=== PATIENT | female | born 1955 | race Caucasian/White ===

== ENCOUNTER 2019-03-22 09:13 | Emergency (ER) | payer OTHER, SELFPAY ==
[2019-03-22 09:14] VITALS: BP 149/85; PULSE 100; RESP 16; TEMP 36.7; O2SAT 97; BMI 20.2
--- NOTE | 2019-03-22 09:24 | ED.DCSUM_ITS ---
History of Present Illness Chief Complaint: Bite Onset: Yesterday Narrative: She presents to the ED with dog bite to the dorsal aspect of her right forearm. She said that last night, she was trying to break up her dogs that were fighting when 1 bit her right forearm. She also notes a scratch to the dorsum of her left hand. She states that her right forearm bite became very red swollen and painful. She reports some purulent drainage from the area. She denies any fever, chills, nausea, or vomiting. Tetanus was updated several months ago. She states that both of the dogs are hers and they are up-to-date on their vaccinations. Past Medical History - Allergies and Home Meds Allergies/Adverse Reactions: Allergies No Known Allergies Allergy (Verified 03/22/19 09:13) Primary Care Physician: Kathia Strong PA [Primary Care Provider] - Smoking Status: Current every day smoker Physical Exam Vital Signs/Narrative: Vital Signs Temp Pulse Resp BP Pulse Ox 03/22/19 09:14 98.0 F 100 16 149/85 H 97 General: Well nourished, Well developed, No Acute Distress Head: Normocephalic, Atraumatic Eyes: Perrl, EOMI ENT: Moist mucous membranes, No rhinorrhea Neck: Supple, Nontender Cardiovascular: Regular rate, Regular rhythm, No murmurs Respiratory: No distress, CTA bilaterally, Chest nontender Abdomen: Soft, Nontender, Nondistended, Normal bowel sounds Back: Nontender, Normal Inspection Extremities: - - Full ROM of all extremities. Skin: No rash, - - Linear superficial laceration to the dorsum of the left hand. No surrounding erythema, edema, or drainage. Open wound of the proximal dorsal right forearm with significant surrounding erythema, warmth, and edema. There is associated purulent drainage. No lymphangitic streaking. Neurological: Alert, Oriented x3, Cranial nerves II-XII grossly intact, Normal Strength, Normal Sensation Psychological: Normal affect, Normal Mood Diagnostic/Tx/Re-eval - Medical Decision Making Presents to the ED with forearm abscess secondary to dog bite that occurred last night. Given the severity of the abscess and time span of development, comprehensive work-up was pursued. Vital signs are stable. Wound culture was obtained. CBC, BMP, and ESR are fairly unremarkable. CRP is mildly elevated. X-ray of the right forearm shows no acute abnormalities. Patient's pain was controlled with morphine. Her tetanus was up-to-date prior to this visit. Patient was given a dose of Unasyn in the ED. 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 We contacted on-call orthopedic physician, who was not comfortable with keeping the patient at this facility. We contacted [facility] in [facility] who were unwilling to take this patient. We contacted [facility] who accepted the patient. Patient will be transferred by private vehicle. She was agreeable to this plan. Impression: Right forearm abscess. Dog bite. Left hand abrasion. Disposition: Transferred to [facility] ED Disposition - Plan for ED Patient: Referrals: Kathia Strong PA [Primary Care Provider] -
--- NOTE | 2019-03-22 09:29 | RAD_ITS ---
STUDY: X-RAY - RIGHT RADIUS AND ULNA REASON FOR EXAM: Female, 63 years old. Dogbite, infection TECHNIQUE: 2 view(s) of the forearm. COMPARISON: None. FINDINGS: There is no demonstrated soft tissue swelling. Normal visualized radius. Normal visualized ulna. RAD/Forearm 2 Views IMPRESSION: Normal x-ray examination of the radius and ulna. Electronically Signed: Rob Gorman MD at 11:03 EDT Tel , Service support ,
[2019-03-22 10:04] LABS: Erythrocyte Sedimentation Rate 20 mm/hr (0-30)
[2019-03-22 10:05] LABS: Absolute Lymphocyte Count 1.31 X10^3/uL (0.83-4.51); Absolute Neutrophil Count 6.9 X10^3/uL (2.0-7.7); Basophil# 0.08 X10^3/uL; Basophil% 0.8 % (0-1); Eosinophil# 0.17 X10^3/uL; Eosinophils% 1.7 % (0-5); Hematocrit 45.6 % (37-47); Hemoglobin 15.7 g/dL (12.0-15.0); Lymphocyte # 1.31 X10^3/ul (4.0); Lymphocyte % 12.9 % (19-41); Mean Corp Hgb Conc 34.4 g/dL (32-36); Mean Corpuscular Hgb 32.4 pg (27.0-32.0); Mean Platelet Vol. 9.3 fl (6.2-12.0); Monocyte# 1.63 X10^3/uL; Monocyte% 16.1 % (0-10); NRBC Flagged by Analyzer 0 % (0-5); Neutrophil % 68.1 % (47-70); POSITIVE DIFFERENTIAL YES; Platelet Count 312 K/mm3 (150-450); RBC Distribution Width CV 12.7 % (11.6-14.6); RBC Distribution Width SD 43.7 fl (35.1-43.9); Red Blood Count 4.85 M/mm3 (4.2-5.4); White Blood Count 10.1 K/mm3 (4.4-11.0)
[2019-03-22 10:09] LABS: Differential Indicated SCAN CRITERIA MET
[2019-03-22 10:15] LABS: Anion Gap 8 (5-15); BUN 5 mg/dL (7-18); BUN/Creat Ratio 6.1 RATIO (10-20); Calcium,Total 9.1 mg/dL (8.5-10.1); Chloride 98 mmol/L (98-107); Creatinine, Serum 0.82 mg/dL (0.55-1.02); EST Glomerular Filtration Rate 75 mL/min (>60); Est Glom Filt Rate - Afr Amer 90 mL/min (>60); Estimated Creatinine Clearance 65.39 ml/min; Glucose 86 mg/dL (74-106); Potassium 3.9 mmol/L (3.5-5.1); Sodium Level 136 mmol/L (136-145)
[2019-03-22] MEDS: 0.9% Normal Saline 1,000 ML 999 ML IV (10:17)
[2019-03-22] MEDS: Morphine 4 MG/ML Syringe IV ×2 (10:17→12:14)
[2019-03-22 11:08] VITALS: TEMP 36.7
--- NOTE | 2019-03-22 11:24 | NURSING ---
CALLED [facility], TALKED TO ETHAN. NOT ACCEPTING ANY OUT PATIENT TRANSFERS. THEY ARE FULL
[2019-03-22 12:25] LABS: M R Staph aureus DNA By PCR Negative (Negative); Probe Check PASS; Specimen Processing Control PASS; Staph aureus DNA By PCR NEGATIVE (Negative)
[2019-03-22 12:29] VITALS: BP 132/90; PULSE 106; RESP 18; TEMP 36.9; O2SAT 97
[2019-03-22 12:43] LABS: Lactic Acid 1.3 mmol/L (0.4-2.0)
== END 2019-03-22 13:04 | disposition short-term general hospital (02) ==
PROVIDERS: Emergency Medicine; Emergency Provider Physician Assistant; Family Provider Physician Assistant; PCP Physician Assistant
DX: L02.413 Cutaneous abscess of right upper limb (principal); S51.851A Open bite of right forearm, initial encounter; S60.512A Abrasion of left hand, initial encounter; W54.0XXA Bitten by dog, initial encounter; Y93.9 Activity, unspecified; Y92.9 Unspecified place or not applicable; Y99.9 Unspecified external cause status; F17.200 Nicotine dependence, unspecified, uncomplicated
CPT/HCPCS: 73090; 80048; 83605; 85025; 85652; 86140; 87070; 87205; 87640; 96361; 96365; 96375; 96376; 99284; J7030; A4216; J0295

== ENCOUNTER 2019-04-26 07:57 | Outpatient (RCR) | payer MEDICARE, SELFPAY ==
--- NOTE | 2019-04-26 15:47 | HP.OTFCE.D ---
FCE D/C Summary - Discharge HANANE BEASLEY was seen for a one time visit for an FCE on 04/26/19 and is discharged.
--- NOTE | 2019-04-26 15:47 | HP.FCE ---
HP OT Functional Capacity Eval - Task Lift Floor (Occasional 1-33% of Day): 7 lbs Floor (Frequent 34-66% of Day): negligible Floor (Constant 67-100% of Day): negligible Floor PDL: Sedentary Knee (Occasional 1-33% of Day): 10 lbs Knee (Frequent 34-66% of Day): 5 lbs Knee (Constant 67-100% of Day): negligible Knee PDL: Sedentary Waist (Occasional 1-33% of Day): 15 lbs Waist (Frequent 34-66% of Day): 7 lbs Waist (Constant 67-100% of Day): negligible Waist PDL: Sedentary-Light Shoulder (Occasional 1-33% of Day): 12 lbs Shoulder (Frequent 34-66% of Day): 7 lbs Shoulder (Constant 67-100% of Day): negligible Shoulder PDL: Sedentary Overhead (Occasional 1-33% of Day): 7 lbs Overhead (Frequent 34-66% of Day): 5 lbs Overhead (Constant 67-100% of Day): negligible Overhead PDL: Sedentary Comments: Push/Pull- - Work Activity/Posture Bending: Frequent Ability (34-66% of day) Squatting: Occasional Ability (1-33% of day) Kneeling: Occasional Ability (1-33% of day) Reaching out: Frequent Ability (34-66% of day) Reaching up: Occasional Ability (1-33% of day) Sitting: Frequent Ability (34-66% of day) Standing: Occasional Ability (1-33% of day) - Reference Duration Sedentary Sedentary Light Light Light Medium Medium Medium Heavy Very Heavy Heavy Occasional (0-33% of day) Frequent (34-66% of day) Constant (67-100% of day) 10 # Negligible Negligible 15 # 8 # Negligible 20 # 10# Negli. 35 # 18 # 7 # 50 # 25 # 10 # 75 # 100 # >100 # 38 # 50 # >50 # 15 # 20 # >20 # - Patient Information Height: 1.73 m Weight:: 62.142 kg Hand Dominance: R BP (Medication Use/Usual Values per pt report): No - Medical History Medical History Including Restrictions: No restirctions by doctor or provided to therapist at this time. - Diagnoses Diagnoses: Past medical history: mastectomy (2017), tobacco use daily ( 1x pack), dog bite on right forearm 9-27-19, Asthma, chronic bronchitis, ulnar neuropathy, radiation dermatitis. Current: Lynnette was referred to functional capacity assessment due to complications on breast cancer starting in 2017. She noted she has mastectomy in 2017 which was followed by complications of infections that were not cleared until August 2017. - Symptoms Symptoms: Lynnette noted he main symptoms are fatigue and generalized weakness with all tasks. - Pain Pain: Lynnette noted hypersensitivity on area of mastectomy and radiation sites. She noted that she can wear bra about three hours prior to needing to remove due to irritation. Noted no pain but general fatigue as day progresses. She did not complete therapy services for scar management post mastectomy as well as generalized weakness. She has since been on disability. Luz Elena Pain Questionnaire is a self-report pain assessment to determine a patient?s accurate psychodynamics for accurate pain rating. A score of 30 or high indicates poor psychodynamics and the greater probability of decreased accuracy with accurate pain reporting. Pre- Luz Elena: 24. Post Luz Elena: 21. Fear Avoidance Questionnaire (FAQ) is a client self-report assessment for 18-64+ that has shown to be reliable and valid for determining increased fear with movements. A score of 96 or higher indicates increased fear avoidance behaviors. FAQ Pre-testin. -Fear avoidance belief about work (items 6,7,9,10,11,12,15): 30. -Fear avoidance belief about physical activity (items 2,3,4,5):21. FAQ Post testin. -Fear avoidance belief about work (items 6,7,9,10,11,12,15): 14. -Fear avoidance belief about physical activity (items 2,3,4,5):21. Disabilities of Arm, Shoulder and Hand is a questionnaire to determine percieved about of disabilities on the affect upper extremity. Total: 120. 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 She noted that after family medical leave was completed, she ?was terminated from position?. 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 She noted she would drive roughly 1000 miles per week and visited 2-3x clients per day, working five days per week. She completed home visits for clients, did not complete client transfers, but did lift durable medical equipment and other items to take into home. Did not need to lift more than 20-50 lbs on occasional basis. - ADLS ADLS: Lynnette lives in one story home with three steps to enter. She has handrail to left side. She has first floor set up once in home. She is independent in self-care tasks and is able to complete caring for two dogs and one cat. She noted some difficulty lift food bags into home which she received help to complete but is able to complete other related tasks. She hires out for [employer]. Lynnette completes microwave meals and can cook simple meals as needed. She noted some fatigue when completed cooking tasks and often completed microwave meals. - Physical Examination Physical Examination: The purpose of this functional capacity evaluation (FCE) was to determine Lynnette?s physical ability. 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 Aerobic limiting factor: 85% of max adjust HR= (220-age) *.85= 132 BPM. Calculated max weight: 60% of weight= 88 Lbs. Beginning Diagnostics: -Blood pressure: 136/97 mmHg. -Heart rate: 118. -Oxygen saturation at room air: 88% ROM: Range of Motion: Shoulder motion measured as left masectomy completed in 2017: - flexion: R 0-98 , L 0- 112. - abudction: R 0-119, L 0- 123. - Internal rotation: R 0-80 , L 0-74. - External rotation: R 0-52 ,L 0-46 Strength: Strength measurements completed with use of manual muscle testing and short arm access of dynamometer. Results are as follows: Upper Body: Shoulder flexion: -Dynamometer: R 5.4 , L 5.4 lbs. Shoulder extension: -Dynamometer: R 10.7 , L 8.9 lbs. Shoulder abduction: -Dynamometer: R 4.4 , L 4.5 lbs. Shoulder Internal Rotation: -Dynamometer: R 6.9 , L 7.3 lbs. Shoulder External Rotation: -Dynamometer: R 5.3 , L 7.5 lbs. Elbow flexion: -Dynamometer: R 13.2 , L 9.4 lbs. Elbow extension: -Dynamometer: R 11.3 , L 8.2. Lower Body: Hip flexion: -Dynamometer: R 12.3 , L 10.3 lbs. Hip adduction: -Dynamometer: R 13 , L 11.3 lbs. Hip abduction: -Dynamometer: R 12.8 , L 11.5 lbs. Knee Flexion: -Dynamometer: R 19.4 , L 17.1 lbs. Knee extension: -Dynamometer:16.2 , L 13.7 lbs. Plantarflexion: -Dynamometer: R 18.4 , L 15.3 lbs. Dorsiflexion: -Dynamometer: R 16.6 , L 14.7 lbs. Completed testing at distal end points. She easily breaks with minimal resistance. Soem descrepancies noted with added resistance. Right Drafter Apprentice Strength Average: 30.33 Left Drafter Apprentice Strength Average: 24.33 Right Lateral Pinch Average: 7.66 Right Lateral Pinch Percentile: 10 Left Lateral Pinch Average: 6.33 Left Lateral Pinch Percentile: 10 Right Tripod Pinch Average: 2.66 Right Tripod Pinch Percentile: below 10th Left Tripod Pinch Average: 5.33 Left Tripod Pinch Percentile: below 25th but above 10th Comments: Five Span Drafter Apprentice testing on Dynamometer: Position 1: R 21 , L 14. Position 2: R 21 , L 21. Position 3: R 27 , L 24. Position 4: R 35 , L 23. Position 5: R 21 , L 24. A coefficient of variation greater than 15 % indicated decreased consistency of effort. Coefficient of variation: R 25%, L 20%. Consistency of Effort: inconsistent Sensation: Sensation testing completed on bilateral feet with monofilament touch test. A score of normal on touch test is 2.83 and within normal range with just some discrepancies for light touch is between 3.22-3.61. The higher the number in more complications related to patient?s ability to perceive touch related sensory stimuli. R hand: Thumb 3.22 ,2nd 2.83 , 3rd 3.22 , 4th 2.83 , 5th 2.83. L hand: Thumb 2.83 ,2nd 2.83 , 3rd 2.83 , 4th 2.83 , 5th 2.83 Fine Motor: Completed the Purdue Pegboard test to further determine the patient?s ability to complete 2-3 step tasks, assess fine motor control and general dexterity needed to complete assembly like work. The results are as follows: Right Hand: 13. -Percentile: 1st. Left Hand: 11. -Percentile: 1 st. Both Hands:9. -Percentile: 1st. R+ L+ Both: 33. -percentile: below 1st. Assembly: 4. -percentile: below 1st Balance: Functional reach test is used to determine static balance in patients. A score of 15 is normal and less than 10 increases risk of falling. A score of 6 or less significantly increases a patient?s risk of falling. Helton 1: 12. Helton 2: 11.5. Helton 3: 11. Average: 11.5. Functional Gait Assessment (FGA) is a dynamic balance test to determine vestibular functioning and general dynamic balance ability of patient 18-65+. This assessment can be used with clients of various backgrounds to determine functional dynamic balance needed to complete every day work related tasks. 1.Gait Level Surface:3. 2.Change in Gait Speed: 2. 3.Gait with horizontal head turns:2. 4.Gait with vertical head turns:3. 5.Gait and pivot turn:2. 6.Step over obstacle:1. 7.Gait with narrow base of support: 2. 8.Gait with eyes closed: 1. 9.Ambulating Backwards: 2. 10.Steps: 3. Total Score: 21 /maximum score 30. Single leg balance test measured in seconds: Eyes Open: Right lower extremity: trial 1: 9. trial 2: 17. trial 3: 9. Left lower extremity: trial 1: 14. trial 2: 12. trial 3: 9. Eyes Closed: Right lower extremity: trial 1: 3. trial 2: 3. trial 3: 4. Left lower extremity: trial 1: 4. trial 2: 3. trial 3: 3. Limited off ground balance observed withg single leg test. She should avoid ladder climbing tasks. - Non Material Handling Activities Bending: Heart rate prior to beginning with use of pulse oximeter: 105 bpm. 3x, 10x in 37 seconds, and 10x faster in 30 seconds. Completed with fair body mechanics. General weakness noted with shaking of bilateral lower extremitis. Completes full bend with decreased spinal alignment due to kyphotic posture.No mechnical changes as task progressed but general decreased spinal alignmnet due to posture. Heart rate posttest with use of pulse oximeter:120 bpm. Perceived pain: 4/10 Squatting: Heart rate prior to beginning with use of pulse oximeter: 115 bpm. 3x, 10x in 26 seconds, and 10x faster in 24 seconds. Completed fair mechanics. Exhibit ability to complete 50% of full squat. She exhibt equal weight bearing into bilateral lower extremities. Mild compensation noted with right lateral leaning of trunk buyt hips remains sqaure. Weaknessnoted of shaking bilateral lower extremities with task. No increase din heart rate to indicate pain. . Heart rate posttest with use of pulse oximeter: 121 bpm. Perceived pain: 4/10 Kneeling: Heart rate prior to beginning with use of pulse oximeter: 117 bpm. 3x, 10x in 35 seconds. Completed [facility]. Right lower extremity in fron for kneel task with mechanical compensation of right side lateral leaning to complete task. Compensations and decreased balance which appears due to weakness noted. Can complete occassionally due to mechanical compensations. Heart rate posttest with use of pulse oximeter: 122 bpm. Perceived pain: 5/10- shoulder Reaching out/up: Completed reaching from standing position: Heart rate prior to beginning with use of pulse oximeter: 101 bpm. 3x, 10x in 16 seconds, and 10x faster in 17 seconds. Completed in standing position. No mechanical changes for forward reaching tasks. Completed with good range of motion. Decrease in heart rate does not match pain percieved. No added pain behaviors noted. Inconsisentcies with performance. Heart rate posttest with use of pulse oximeter: 82 bpm. Perceived pain: 4/10- right leg. Reaching up rom standing: Heart rate prior to beginning with use of pulse oximeter: 82 bpm. 3x, 10x in 21 seconds, and 10x faster in 20 seconds. Completed fair body mechanics but increased mechanical deficits in bilateral upper extremity to complete task. Pain behaviors noted of limited range of motion and general tightness observed of shoulder. No crepitus heard but heart rate reflective of pain noted. Heart rate posttest with use of pulse oximeter: 120 bpm. Perceived pain:4-5/10- left upper extremity around shoulder. Walking: Heart rate prior to beginning with use of pulse oximeter: Completed 15 mins with 8 laps for completion of 2720 feet. Completed two minutes seated break post completing of tasks. Heart rate posttest with use of pulse oximeter: Perceived pain: Standing: Completed standing for 30 minutes during testing with static and dyanmic movements. Exhibits ability to complete standing occassionally during work day as does exhibit increased fatigue as tasks progress. Equal weightbearing in bilateral lower extremity noted. Sitting: Able to completed 30 mins of consisent sitting tasks while going over background information. No need to complete weight shifting and tolerates seated tasks well. Climbing Stairs: Heart rate prior to beginning with use of pulse oximeter: 94 bpm. Completed alternating foot pattern with no use of handrail. Exhibits ability to complete stair climbing tasks occassionally. She was short of breath by end of task. Heart rate posttest with use of pulse oximeter: 105 bpm. Perceived pain: - Dynamic Occasional Lifting Capacity Floor Lift: Heart rate prior to beginning with use of pulse oximeter: 105 bpm. Occasional Liftinx 7 lbs. Frequent liftinx negilible lbs. Poor body mechanics. Rlateral leaning. Heart rate posttest with use of pulse oximeter: 124 bpm. Perceived pain: 4/10- left shoulder Knee Lift: Heart rate prior to beginning with use of pulse oximeter: 107 bpm. Max weight: 15 lbs. Occasional Liftinx 10 lbs. Frequent liftinx 5 lbs. Completed full lift with box which is 15 lbs but when [address] in crate unable to complete task. Discrepancies. Heart rate posttest with use of pulse oximeter: 120. Perceived pain:4/10 Waist Lift: Heart rate prior to beginning with use of pulse oximeter: 121 bpm. Max weight: 20 lbs- left side pain with increased mechanical changes; left upper extremity only. Occasional Liftinx 15 lbs. Frequent liftinx 7 lbs. wait lift; increase in weight tolerance noted as expect. Appears consisent. equal weightbearing. Heart rate posttest with use of pulse oximeter: 107 bpm. Perceived pain:5-6/10- left shoulder Shoulder Lift: Heart rate prior to beginning with use of pulse oximeter: 107 bpm. Max weight: 20 lbs. Occasional Liftinx 12 lbs. Frequent liftinx 7 lbs. Compensations of shifting R UE. Heart rate posttest with use of pulse oximeter: 121 bpm. Perceived pain: 5-6/10 left upper extremity Overhead Lift: Heart rate prior to beginning with use of pulse oximeter: 123 bpm. Max weight: 10 lbs. Occasional Liftinx 7 lbs. Frequent liftinx lbs. leaned on desk prior to continuing; pain behaviors noted. Heart rate posttest with use of pulse oximeter: 121 bpm. Perceived pain: 5/10 left upper extrmity. Carrying: Heart rate prior to beginning with use of pulse oximeter: 121. Occasional Liftinx 15 lbs. Frequent liftinx 5 lbs. Heart rate posttest with use of pulse oximeter: 119. Perceived pain: Comments: push pull slieght only on carpet
--- NOTE | 2019-05-03 13:23 | HP.OTFCE_ITS ---
HP OT Functional Capacity Eval Date of Evaluation: 04/26/19 - Task Lift Floor (Occasional 1-33% of Day): 7 lbs Floor (Frequent 34-66% of Day): negligible Floor (Constant 67-100% of Day): negligible Floor PDL: Sedentary Knee (Occasional 1-33% of Day): 10 lbs Knee (Frequent 34-66% of Day): 5 lbs Knee (Constant 67-100% of Day): negligible Knee PDL: Sedentary Waist (Occasional 1-33% of Day): 15 lbs Waist (Frequent 34-66% of Day): 7 lbs Waist (Constant 67-100% of Day): negligible Waist PDL: Sedentary-Light Shoulder (Occasional 1-33% of Day): 12 lbs Shoulder (Frequent 34-66% of Day): 7 lbs Shoulder (Constant 67-100% of Day): negligible Shoulder PDL: Sedentary Overhead (Occasional 1-33% of Day): 7 lbs Overhead (Frequent 34-66% of Day): 5 lbs Overhead (Constant 67-100% of Day): negligible Overhead PDL: Sedentary - Work Activity/Posture Bending: Frequent Ability (34-66% of day) Squatting: Frequent Ability (34-66% of day) Comments: 34% only Kneeling: Occasional Ability (1-33% of day) Reaching out: Frequent Ability (34-66% of day) Reaching up: Occasional Ability (1-33% of day) Sitting: Frequent Ability (34-66% of day) Standing: Occasional Ability (1-33% of day) - Reference Duration Sedentary Sedentary Light Light Light Medium Medium Medium Heavy Very Heavy Heavy Occasional (0-33% of day) Frequent (34-66% of day) Constant (67-100% of day) 10 # Negligible Negligible 15 # 8 # Negligible 20 # 10# Negli. 35 # 18 # 7 # 50 # 25 # 10 # 75 # 100 # >100 # 38 # 50 # >50 # 15 # 20 # >20 # - Patient Information Height: 1.73 m Weight:: 62.142 kg Hand Dominance: R BP (Medication Use/Usual Values per pt report): No - Medical History Medical History Including Restrictions: No restirctions by doctor or provided to therapist at this time. - Diagnoses Diagnoses: Past medical history: mastectomy (2017), tobacco use daily ( 1x pack), dog bite on right forearm 03-22-19, Asthma, chronic bronchitis, ulnar neuropathy, radiation dermatitis. Current: Lynnette was referred to functional capacity assessment due to complications on breast cancer starting in 2016. She noted she has mastectomy in 2017 which was followed by complications of infections that were not cleared until August 2017. Medications: -albuterol. -ampohetamine-dextroamphetamine. - aspirin. - exemestane. - nitrofurantonin. - pantoprazole. - phenazopyridine - Symptoms Symptoms: Lynnette noted her main symptoms are fatigue and generalized weakness with all tasks. - Pain Pain: Lynnette noted hypersensitivity on area of mastectomy and radiation sites. She noted that she can wear bra about three hours prior to needing to remove due to irritation. Noted no pain but general fatigue as day progresses. She did not complete therapy services for scar management post mastectomy or to address generalized weakness due to radiation dermatitis. She has since been on disability. Luz Elena Pain Questionnaire is a self-report pain assessment to determine a patient?s accurate psychodynamics for accurate pain rating. A score of 30 or high indicates poor psychodynamics and the greater probability of decreased accuracy with accurate pain reporting. Pre- Luz Elena: 24. Post Luz Elena: 21. Fear Avoidance Questionnaire (FAQ) is a client self-report assessment for 18-64+ that has shown to be reliable and valid for determining increased fear with movements. A score of 96 or higher indicates increased fear avoidance behaviors. FAQ Pre-testin. -Fear avoidance belief about work (items 6,7,9,10,11,12,15): 30. -Fear avoidance belief about physical activity (items 2,3,4,5):21. FAQ Post testin. -Fear avoidance belief about work (items 6,7,9,10,11,12,15): 14. -Fear avoidance belief about physical activity (items 2,3,4,5):21. Disabilities of Arm, Shoulder and Hand is a questionnaire to determine perceived about of disabilities on the affect upper extremity. Total: 120. 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 She noted that after family medical leave was completed, she ?was terminated from position?. 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 She noted she would drive roughly 1000 miles per week and visited 2-3x clients per day, working five days per week. She completed home visits for clients, did not complete client transfers, but did lift durable medical equipment and other items to take into home. Did not need to lift more than 20-50 lbs on occasional basis. - Behavioral Behavioral: Lynnette attempted all tasks. She exhibits increased fatigue as tasks progressed and exhibit generalized weakness throughout body. Pain reporting did not appear reliable as heart rate was not consistently reflective of pain reporting. Pain remained fairly consistent throughout session. - ADLS ADLS: Lynnette lives in one story home with three steps to enter. She has handrail to left side. She has first floor set up once in home. She is independent in self-care tasks and is able to complete caring for two dogs and one cat. She noted some difficulty lift food bags into home which she received help to complete but is able to complete other related tasks. She hires out for [employer]. Lynnette completes microwave meals and can cook simple meals as needed. She noted some fatigue when completed cooking tasks and often completed microwave meals. - Physical Examination Physical Examination: The purpose of this functional capacity evaluation (FCE) was to determine Lynnette?s physical ability. This FCE was performed in order to steel pourer helper in the determination of her physical ability. Aerobic limiting factor: 85% of max adjust HR= (220-age) *.85= 132 BPM. Calculated max weight: 60% of weight= 88 Lbs. Beginning Diagnostics: -Blood pressure: 136/97 mmHg. - Heart rate: 118. -Oxygen saturation at room air: 88% ROM: Range of Motion: Shoulder motion measured as left masectomy completed in 2017: - flexion: R 0-98 , L 0- 112. - abudction: R 0-119, L 0- 123. - Internal rotation: R 0-80 , L 0-74. - External rotation: R 0-52 ,L 0-46 Strength: Strength measurements completed with use of manual muscle testing and short arm access of dynamometer. Results are as follows: Upper Body: Shoulder flexion: -Dynamometer: R 5.4 , L 5.4 lbs. Shoulder extension: -Dynamometer: R 10.7 , L 8.9 lbs. Shoulder abduction: -Dynamometer: R 4.4 , L 4.5 lbs. Shoulder Internal Rotation: -Dynamometer: R 6.9 , L 7.3 lbs. Shoulder External Rotation: -Dynamometer: R 5.3 , L 7.5 lbs. Elbow flexion: - Dynamometer: R 13.2 , L 9.4 lbs. Elbow extension: -Dynamometer: R 11.3 , L 8.2. Lower Body: Hip flexion: -Dynamometer: R 12.3 , L 10.3 lbs. Hip adduction: -Dynamometer: R 13 , L 11.3 lbs. Hip abduction: -Dynamometer: R 12.8 , L 11.5 lbs. Knee Flexion: -Dynamometer: R 19.4 , L 17.1 lbs. Knee extension: -Dynamometer:16.2 , L 13.7 lbs. Plantarflexion: -Dynamometer: R 18.4 , L 15.3 lbs. Dorsiflexion: -Dynamometer: R 16.6 , L 14.7 lbs. Completed testing at distal end points. She easily breaks with minimal resistance. Some discrepancies noted with added resistance. Right [employer] Salesperson Strength Average: 30.33 Left [employer] Salesperson Strength Average: 24.33 Right Lateral Pinch Average: 7.66 Right Lateral Pinch Percentile: 10 Left Lateral Pinch Average: 6.33 Left Lateral Pinch Percentile: 10 Right Tripod Pinch Average: 2.66 Right Tripod Pinch Percentile: below 10th Left Tripod Pinch Average: 5.33 Left Tripod Pinch Percentile: below 25th but above 10th Comments: [employer]an [employer] Salesperson testing on Dynamometer: Position 1: R 21 , L 14. Position 2: R 21 , L 21. Position 3: R 27 , L 24. Position 4: R 35 , L 23. Position 5: R 21 , L 24. A coefficient of variation greater than 15 % indicated decreased consistency of effort. Coefficient of variation: R 25%, L 20%. Consistency of Effort: inconsistent Sensation: Sensation testing completed on bilateral feet with monofilament touch test. A score of normal on touch test is 2.83 and within normal range with just some discrepancies for light touch is between 3.22-3.61. The higher the number in more complications related to patient?s ability to perceive touch related sensory stimuli. R hand: Thumb 3.22 ,2nd 2.83 , 3rd 3.22 , 4th 2.83 , 5th 2.83. L hand: Thumb 2.83 ,2nd 2.83 , 3rd 2.83 , 4th 2.83 , 5th 2.83 Fine Motor: Completed the Purdue Pegboard test to further determine the patient?s ability to complete 2-3 step tasks, assess fine motor control and general dexterity needed to complete assembly like work. The results are as follows: Right Hand: 13. -Percentile: 1st. Left Hand: 11. -Percentile: 1 st. Both Hands:9. -Percentile: 1st. R+ L+ Both: 33. -percentile: below 1st. Assembly: 4. -percentile: below 1st Balance: Functional reach test is used to determine static balance in patients. A score of 15 is normal and less than 10 increases risk of falling. A score of 6 or less significantly increases a patient?s risk of falling. [place] 1: 12. [place] 2: 11.5. [place] 3: 11. Average: 11.5. Demonstrates good static balance for generalized static standing tasks. Static balance is good. Functional Gait Assessment (FGA) is a dynamic balance test to determine vestibular functioning and general dynamic balance ability of patient 18-65+. This assessment can be used with clients of various backgrounds to determine functional dynamic balance needed to complete every day work related tasks. 1.Gait Level Surface:3. 2.Change in Gait Speed: 2. 3.Gait with horizontal head turns:2. 4.Gait with vertical head turns:3. 5.Gait and pivot turn:2. 6.Step over obstacle:1. 7.Gait with narrow base of support: 2. 8.Gait with eyes closed: 1. 9.Ambulating Backwards: 2. 10.Steps: 3. Total Score: 21 /maximum score 30. Within age range scoring but exhibits more than two standard deviations from mean score. Single leg balance test measured in seconds: Eyes Open: Right lower extremity: trial 1: 9. trial 2: 17. trial 3: 9. Left lower extremity: trial 1: 14. trial 2: 12. trial 3: 9. Eyes Closed: Right lower extremity: trial 1: 3. trial 2: 3. trial 3: 4. Left lower extremity: trial 1: 4. trial 2: 3. trial 3: 3. Limited off ground balance observed with single leg test. She should avoid ladder climbing tasks. - Non Material Handling Activities Bending: Heart rate prior to beginning with use of pulse oximeter: 105 bpm. 3x, 10x in 37 seconds, and 10x faster in 30 seconds. Completed with fair body mechanics. General weakness noted with shaking of bilateral lower extremities. Completes full bend with decreased spinal alignment due to kyphotic posture. No mechanical changes as task progressed but general decreased spinal alignment due to posture. Noted and heart rate reflective of increase paina s increased pulling of UE with bend on masectomy area. Heart rate posttest with use of pulse oximeter:120 bpm. Perceived pain: 4/10 Squatting: Heart rate prior to beginning with use of pulse oximeter: 115 bpm. 3x, 10x in 26 seconds, and 10x faster in 24 seconds. Completed fair mechanics. Exhibits ability to complete 50% of full squat. She exhibits equal weight bearing into bilateral lower extremities. Mild compensation noted with right lateral leaning of trunk but hips remains square. Weakness noted of shaking bilateral lower extremities with task. No increase in heart rate to indicate increase pain and mild increase likely indicate mild increase in exertion. . Heart rate posttest with use of pulse oximeter: 121 bpm. Perceived pain: 4/10 Kneeling: Heart rate prior to beginning with use of pulse oximeter: 117 bpm. 3x, 10x in 35 seconds. Completed fair body mechanics for kneel tasks. Right lower extremity in front for kneeling task with mechanical compensation of right-side lateral leaning to complete task. Compensations and decreased balance which appears due to weakness noted. Can complete occasionally due to mechanical compensations. Heart rate not reflective of note pain. Inconsistencies noted with pain reporting. Heart rate posttest with use of pulse oximeter: 122 bpm. Perceived pain: 5/10- shoulder Reaching out/up: Completed reaching from standing position: Heart rate prior to beginning with use of pulse oximeter: 101 bpm. 3x, 10x in 16 seconds, and 10x faster in 17 seconds. Completed in standing position. No mechanical changes for forward reaching tasks. Completed with good range of motion. Decrease in heart rate does not match pain perceived. No added pain behaviors noted. Inconsistencies with performance. Heart rate posttest with use of pulse oximeter: 82 bpm. Perceived pain: 4/10- right leg. Reaching up rom standing: Heart rate prior to beginning with use of pulse oximeter: 82 bpm. 3x, 10x in 21 seconds, and 10x faster in 20 seconds. Completed fair body mechanics but increased mechanical deficits in bilateral upper extremity to complete task. Pain behaviors noted of limited range of motion and general tightness observed of shoulder. No crepitus heard but heart rate reflective of pain noted. Consistent performance. Heart rate posttest with use of pulse oximeter: 120 bpm. Perceived pain:4-5/10- left upper extremity around shoulder. Walking: Completed 15 mins with 8 laps for completion of 2720 feet. Completed two minutes seated break post completing of tasks. Standing: Completed standing for 30 minutes during testing with static and dynamic movements. Exhibits ability to complete standing occasionally during work day as does exhibit increased fatigue as tasks progress. Equal weightbearing in bilateral lower extremity noted. Sitting: Able to complete 30 mins of consistent sitting tasks while going over background information. No need to complete weight shifting and tolerates seated tasks well. Climbing Stairs: Heart rate prior to beginning with use of pulse oximeter: 94 bpm. Completed alternating foot pattern with no use of handrail. Exhibits ability to complete stair climbing tasks occasionally. She was short of breath by end of task. Generalized weakness and fatigue noted. Heart rate posttest with use of pulse oximeter: 105 bpm. Perceived pain:4/10 - Dynamic Occasional Lifting Capacity Floor Lift: Heart rate prior to beginning with use of pulse oximeter: 105 bpm. Occasional Liftinx 7 lbs. Frequent liftinx negligible lbs. Co mpleted lift with narrow base of support and decreased spinal alignment due to kyphotic posture. Cobb mechanics are poor. Completed with mechanical compensations of right lateral leaning. Load distribution noted was equal through upper and lower body. Increase in heart rate observed. Effort appears consistent. Heart rate posttest with use of pulse oximeter: 124 bpm. Perceived pain: 4/10- left shoulder Knee Lift: Heart rate prior to beginning with use of pulse oximeter: 107 bpm. Max weight: 15 lbs. Occasional Liftinx 10 lbs. Frequent liftinx 5 lbs. Completed full lift with box which is 15 lbs but when [address] empty milk crate she was unable to complete task. Inconsistencies noted. Completed with fair body mechanics. Noted increased pull of L upper extremity. Increase in heart rate reflective of exertion. Pain consistent at 4/10 for most of session. Heart rate posttest with use of pulse oximeter: 120 bpm. Perceived pain:4/10 Waist Lift: Heart rate prior to beginning with use of pulse oximeter: 121 bpm. Max weight: 20 lbs- left side pain with increased mechanical changes; left upper extremity only. Occasional Liftinx 15 lbs. Frequent liftinx 7 lbs. Completed with fair body mechanics. Completed with equal weightbearing into bilateral upper and lower extremities. Increase in pain noted but heart note reflective. Pain behaviors observed of holding shoulder. Heart rate posttest with use of pulse oximeter: 107 bpm. Perceived pain:5-6/10- left shoulder Shoulder Lift: Heart rate prior to beginning with use of pulse oximeter: 107 bpm. Max weight: 20 lbs. Occasional Liftinx 12 lbs. Frequent liftinx 7 lbs. Completed with fair body mechanics. Completed increased mechanical compensations of shifting box weight to right upper extremity. Heart rate reflective of pain and exertion. Effort appears consistent. Heart rate posttest with use of pulse oximeter: 121 bpm. Perceived pain: 5-6/10 left upper extremity Overhead Lift: Heart rate prior to beginning with use of pulse oximeter: 123 bpm. Max weight: 10 lbs. Occasional Liftinx 7 lbs. Frequent liftinx lbs. Needed short break prior to continuing tasks. Completed lift with fair body mechanics. Completed increased load distribution to right upper extremity with increased mechanical compensations observed Noted pulling from left mastectomy area. Heart rate not reflective of pain. Pain behaviors observed of compensation and working on weight shifting side to side. Heart rate posttest with use of pulse oximeter: 121 bpm. Perceived pain: 5/10 left upper extremity. Carrying: Heart rate prior to beginning with use of pulse oximeter: 121 bpm. Occasional Liftinx 15 lbs. Frequent liftinx 5 lbs. Completed carrying for 20 feet with fair mechanics. Increased mechanical compensations noted through increased load distribution of right upper and lower extremities. Some physical pain behaviors of grimace noted but heart did not reflect increase in pain. Heart rate posttest with use of pulse oximeter: 119 bpm. Perceived pain:5/10 Comments: push pull sleigh only on carpet about 35 lbs of resistance for 20 feet on time with increased compensations. Could completed tasks occassionally but due to past medical history shpould likley avoid due to increase in symptoms.
== END 2019-04-26 19:00 | disposition home or self-care (01) ==
LOC: OT 07:57
PROVIDERS: Family Provider Physician Assistant; PCP Physician Assistant; Referring Provider Physician Assistant; Visit Provider Physician Assistant
DX: J42 Unspecified chronic bronchitis (principal); L59.8 Other specified disorders of the skin and subcutaneous tissue related to radiation; G56.20 Lesion of ulnar nerve, unspecified upper limb; R68.89 Other general symptoms and signs
CPT/HCPCS: 97750

== ENCOUNTER 2020-04-04 18:59 | Emergency (ER) | payer MEDICARE, SELFPAY ==
[2020-04-04 19:00] VITALS: BP 153/86; PULSE 89; PULSE 90; RESP 22; TEMP 36.3; O2SAT 98; O2SAT 99; BMI 20.7
--- NOTE | 2020-04-04 19:09 | RAD_ITS ---
STUDY: X-RAY - RIGHT FOOT CLINICAL: Female, 64 years old. INJURY TO RIGHT FOOT AFTER TRIPPING ON RUG. PT STATES GREAT TOE WAS BENT TOWARDS HER FOOT. PAIN IS MOSTLY IN GREAT TOE. TECHNIQUE: 3 view(s) of the foot. COMPARISON: None. FINDINGS: Normal talus, calcaneus, and tarsal bones. Normal visualized subtalar, talonavicular, calcaneocuboid, tarsal and tarsometatarsal articulations. Normal metatarsi. Normal metatarsophalangeal joint of the great toe. Normal tibial and fibular sesamoid bones. Normal interphalangeal joint of the great toe. Normal phalanges of the great toe. Normal second through fifth metatarsophalangeal joints. Normal interphalangeal joints and phalanges of the lesser toes. The soft tissue structures are unremarkable. There is no demonstrated fracture. RAD/Foot min 3 Views IMPRESSION: Normal x-ray examination of the foot. Electronically Signed: Vance Kirby MD at 19:46 EDT , Service support ,
--- NOTE | 2020-04-04 19:11 | ED.DCSUM_ITS ---
- ER Visit Summary Date of Service: 04/04/20 Chief Complaint: [Injury to right foot] History of Present Illness: The patient is a 64 F [presents to the emergency department with pain in her right foot since injuring it approximately noon today. Patient states that she was moving a rug when the great toe got caught on the edge of the rug and bent her foot backwards. Patient felt something crack in her foot. She is now having hard time walking. She used ibuprofen but not get much pain relief. She denies any other injuries. Patient has remote history of breast cancer and is in remission. She is had prior mastectomy.] Physical Examination: [HEENT-PERRLA, EOMI. Cranial nerves II through XII grossly intact. TMs clear. Mucous membranes moist. No adenopathy. Cardiovascular-regular rate and rhythm without murmur or ectopy Lungs-clear to auscultation, chest wall stable without crepitus or subcu emphysema Abdomen-normoactive bowel sounds, soft, nontender, no rebound or rigidity, no peritoneal signs. Extremities-intact ?4, normal range of motion, normal pulses. Right foot- patient has diffuse tenderness to palpation over the dorsum of the foot distally. No tenderness over the toes noted. There is no obvious deformity. There is no ecchymosis or bruising. Minimal soft tissue swelling.] Test Results: [Rays of the right foot obtained which were read by radiology as normal.] Emergency Department Course and Treatment: [Patient was given Ranjeet wrap and crutches] Treatment Plan: [Patient to follow-up with primary care physician 5 to 7 days. Patient given a prescription for few [place] for pain.] Disposition: [Discharged home in stable condition] Impression: [Right foot sprain] This note was generated with [employer] dictation software. It may contain incorrect words, spelling, and punctuation that were not noted in review of the chart prior to signing ED Disposition - Plan for ED Patient: Referrals: Kathia Strong PA [Primary Care Provider] -
--- NOTE | 2020-04-04 19:49 | ED.DEP ---
ED Disposition - Plan for ED Patient: Instructions: ED Sprain Foot Prescriptions: Hydrocodone Bitart/Apap 5-325 [[place] 5MG-325MG] 1 tab PO Q4H PRN PRN 2 Days #10 tab PRN Reason: Pain Prescription Printed Referrals: Kathia Strong, PA [Primary Care Provider] - 5-7 Days
[2020-04-04 19:55] VITALS: RESP 17
== END 2020-04-04 20:06 | disposition home or self-care (01) ==
LOC: ED 19:20
PROVIDERS: Emergency Provider Emergency Medicine; PCP Physician Assistant
DX: S93.601A Unspecified sprain of right foot, initial encounter (principal); W18.40XA Slipping, tripping and stumbling without falling, unspecified, initial encounter; Y93.9 Activity, unspecified; Y92.9 Unspecified place or not applicable; Y99.9 Unspecified external cause status; K21.9 Gastro-esophageal reflux disease without esophagitis; Z72.0 Tobacco use; Z79.899 Other long term (current) drug therapy; Z85.3 Personal history of malignant neoplasm of breast; Z90.10 Acquired absence of unspecified breast and nipple
CPT/HCPCS: 73630; 99283

== ENCOUNTER 2021-11-13 20:48 | Emergency (ER) | payer MEDICARE, SELFPAY ==
[2021-11-13 20:50] VITALS: BP 171/97; PULSE 86; RESP 16; TEMP 36.4; O2SAT 97; BMI 20.2
--- NOTE | 2021-11-13 22:02 | ED.RN ---
pt called out asking am i going to be seen anytime soon This RN states that staff and physicians are working with a pediatric emergency and would be with her as soon as they could. She then states should i just go to another hospital then I explained that we cant make her stay but by the time she gets to another hospital and gets checked in she would probably be seen here by then.
--- NOTE | 2021-11-13 22:26 | ED.RN ---
Pt walks out stating im just going to another hospital you should be real proud, this hospital is a joke
== END 2021-11-13 22:25 | disposition left against medical advice (07) ==
PROVIDERS: PCP Physician Assistant
DX: T14.90XA Injury, unspecified, initial encounter (principal); W54.0XXA Bitten by dog, initial encounter; Z53.21 Procedure and treatment not carried out due to patient leaving prior to being seen by health care provider
CPT/HCPCS: 99281

== ENCOUNTER → 2024-10-21 | Outpatient (CLI) | payer MEDICARE, SELFPAY ==
[2024-10-21 17:27] LABS: Amphetamine Urine NEGATIVE (<1000 ng/mL); Barbiturate Urine NEGATIVE (< 200 ng/mL); Benzodiazepine Urine NEGATIVE (< 200 ng/mL); Buprenorphine Urine NEGATIVE (< 200 ng/mL); Cocaine Urine NEGATIVE (< 300 ng/mL); Fentanyl, Urine NEGATIVE; Methadone Urine NEGATIVE (< 300 ng/mL); Opiates Urine NEGATIVE (< 300 ng/mL); Oxycodone, Urine NEGATIVE (< 100 ng/mL); PCP Urine NEGATIVE (< 25 ng/mL); THC Urine PRESUMPTIVE POSITIVE (< 50 ng/mL)
== END | disposition home or self-care (01) ==
LOC: LAB 14:50
PROVIDERS: PCP Physician Assistant; Referring Provider Anesthesiology Pain Medicine; Visit Provider Anesthesiology Pain Medicine
DX: F11.20 Opioid dependence, uncomplicated (principal)
CPT/HCPCS: 80307

== ENCOUNTER → 2024-10-22 | Outpatient (CLI) | payer MEDICARE, SELFPAY ==
--- NOTE | 2024-10-22 10:38 | RAD_ITS ---
PROCEDURE: CERV SPINE 2 OR 3 VIEWS 10/22/2024 REASON FOR EXAM: SPONDYLOSIS WITHOUT MYELOPATHY OR RADICULOPATHY, CERVICAL REGION TECHNIQUE: 3 views of the cervical spine. FINDINGS: Vertebrae: No acute fracture. disc spaces: Disc space narrowing and osteophyte formation of the lower cervical spine consistent with degenerative disc disease. Alignment: 2 mm of retrolisthesis of C5 on C6. soft tissues: Normal prevertebral soft tissues. Other: RAD/Cerv Spine 2 or 3 Views IMPRESSION: Moderate degenerative disc disease of the lower cervical spine with 2 mm of ret rolisthesis of C5 on C6. Disclaimer: Reading Location: [id number]
== END | disposition home or self-care (01) ==
LOC: RAD 10:38
PROVIDERS: PCP Physician Assistant; Referring Provider Anesthesiology Pain Medicine; Visit Provider Anesthesiology Pain Medicine
DX: M47.812 Spondylosis without myelopathy or radiculopathy, cervical region (principal)
CPT/HCPCS: 72040